=== PATIENT | male | born 1990 | race African-American/Black ===

== ENCOUNTER 2023-10-21 16:55 | Emergency (ER) | payer SELFPAY ==
[~2023-10-21] VITALS: Ht 182.9 cm; Wt 133.9 kg
[2023-10-21 17:01] VITALS: PULSE 88; RESP 18; TEMP 98.8; O2SAT 97
[2023-10-21] MEDS ORDERED: AMLODIPINE BESY10 MG PO ×2 (17:12→17:19)
[2023-10-21] MEDS ORDERED: VALSARTAN-HCTZ1 EAC3 PO (17:14)
[2023-10-21] MEDS ORDERED: HYDROCHLOROTHIA25 MG PO (17:19)
[2023-10-21] MEDS ORDERED: DIOVAN160 MG PO (17:19)
== END 2023-10-21 17:23 | disposition home or self-care (01) ==
LOC: FSED 17:00
DX: R51.9 Headache, unspecified (principal); I10 Essential (primary) hypertension; Z76.0 Encounter for issue of repeat prescription
CPT/HCPCS: 99283